=== PATIENT | male | born 1940 | race Hispanic/Latino ===

== ENCOUNTER 2017-05-09 05:38 | Day surgery (SDC) | payer BC ==
[2017-05-09] MEDS ORDERED: Propofol 10 mg/ml Inj (20 ML) ONE (07:43)
[2017-05-09] MEDS ORDERED: Midazolam 2 MG/2 ML VIAL ONE (07:44)
[2017-05-09] MEDS: Lactated Ringer's 1,000 ML IV ONE (07:45)
[2017-05-09] MEDS: ceFAZolin IV 2 gm in Dextrose 2 GM/50 ML BAG IVPB ONE (07:50)
[2017-05-09] MEDS: Lidocaine/Epinephrine 1% 1:100000 10 ML IJ ONE (08:15)
[2017-05-09] MEDS ORDERED: HYDROmorphone 0.5 mg/0.5 ml ISec IVP PRN (09:04)
--- NOTE | 2017-05-09 09:07 | PCM.SURG1 ---
Surgeon's Initial Post Op Note - Surgeon's Notes Surgeon: ivette Clinical Psychology Teacher: 0 Type of Anesthesia: General Endo Anesthesia Administered By: bib ash Pre-Operative Diagnosis: large 10 cm cyst of back Operative Findings: removed intact Post-Operative Diagnosis: same Operation Performed: excision 10 com cyst with skin flaps Specimen/Specimens Removed: cyst Estimated Blood Loss: EBL {In ML}: 50 Blood Products Given: N/A Drains Used: No Drains Post-Op Condition: Good Date of Surgery/Procedure: 05/09/17 Time of Surgery/Procedure: 09:06
[2017-05-09] MEDS ORDERED: Oxycodone/Acetaminophen 5/325 mg Tab PO PRN (09:08)
[2017-05-09] MEDS ORDERED: Lactated Ringer's 1,000 ML IV SCH (09:15)
[2017-05-09] MEDS ORDERED: Metoprolol 1 mg/ml Inj IVP ONE (09:22)
[2017-05-09] MEDS ORDERED: Esmolol 100 mg/10ml Inj IV ONE (09:22)
[2017-05-09 13:34] VITALS: BP 127/56; PULSE 79; RESP 18; TEMP 97.6; O2SAT 97
--- NOTE | 2017-05-10 07:38 | OP ---
PROCEDURE DATE: 05/09/2017 PREOPERATIVE DIAGNOSIS: Large infected sebaceous cyst at back, approximately 10 cm total. SURGEON: Jonathon Eid Jr., MD SEMIAUTOMATIC STITCHER OPERATOR: None. TYPE OF ANESTHESIA: General anesthesia. ANESTHESIA ADMINISTERED BY: Dr. Mccollum with substitutions. DESCRIPTION OF PROCEDURE: The patient is 76-year-old man with a large cyst on his back, initially we considered excising it in the office, however there, it was inflamed and I felt that it would be better to excise it entirely including the capsule. OPERATIVE FINDINGS: The entire cyst was removed intact. Two large skin flaps were raised anteriorly and inferiorly to allow for closure. The rest of the intraoperative findings were unremarkable. PROCEDURE: The patient was given general anesthesia, placed in prone position. Area has been marked. Skin flaps were raised. Superiorly and inferiorly after incising this and infiltrating lidocaine with epinephrine. After this had been done, we obtained hemostasis. The blood loss for the procedure was less than 25 mL and the wound was approximated with a layered closure and raising the flaps superiorly and inferiorly to allow for tension free closure. So the operation was carried out with excision of a large 10 cm sebaceous cyst at back and 2 layered closure with superior and inferior flaps. Jonathon Eid Jr., MD cc: Colin Sanderson MD
--- NOTE | 2017-05-10 19:07 | CARD ---
APPROVED REPORT EKG Measurement Heart [id number] <Conclusion> Atrial fibrillation Left anterior fascicular block Septal infarct, age undetermined ST & T wave abnormality, consider lateral ischemia Abnormal ECG
== END 2017-05-09 15:11 | disposition home or self-care (01) ==
LOC: C.SDS 05:38
PROVIDERS: ATTEND Surgery Vascular Surgery
DX: L72.11 Pilar cyst (principal); I48.91 Unspecified atrial fibrillation; I10 Essential (primary) hypertension; E78.5 Hyperlipidemia, unspecified